=== PATIENT | female | born 1985 | race Caucasian/White ===

== ENCOUNTER 2020-09-16 18:50 | Emergency (ER) | payer OTHER ==
[~2020-09-16 18:50] MED LIST: CYCLOBENZAPRINE10 MG PO; TORADOL 10 MG T10 MG PO
[2020-09-16] MEDS ORDERED: BACTRIM DS TAB1 EACH PO (20:02)
== END 2020-09-16 20:20 | disposition home or self-care (01) ==
LOC: ER1 18:50
DX: L02.416 Cutaneous abscess of left lower limb (principal); F17.200 Nicotine dependence, unspecified, uncomplicated; Z90.49 Acquired absence of other specified parts of digestive tract; Z88.0 Allergy status to penicillin; Z88.5 Allergy status to narcotic agent; Z79.899 Other long term (current) drug therapy
CPT/HCPCS: 10060; 99281

== ENCOUNTER 2020-11-16 16:31 | Emergency (ER) | payer OTHER ==
[~2020-11-16 16:31] MED LIST changes: +BACTRIM DS TAB1 EACH PO
[2020-11-16 18:04] LABS: HEMOGLOBIN 14.3 gm/dl (12.3-15.3); RED BLOOD COUNT 4.47 M/UL (4.00-5.10); WHITE BLOOD COUNT 7.8 K/UL (4.5-11.0)
[2020-11-16 18:34] LABS: BUN/CREATININE RATIO 10 (0-10)
[2020-11-16] MEDS ORDERED: CIPRO500 MG PO (19:48)
== END 2020-11-16 19:58 | disposition home or self-care (01) ==
LOC: ER1 16:31
PROVIDERS: Nurse Practitioner
DX: N39.0 Urinary tract infection, site not specified (principal); R31.9 Hematuria, unspecified; Z90.710 Acquired absence of both cervix and uterus; Z88.0 Allergy status to penicillin; Z88.1 Allergy status to other antibiotic agents; Z88.5 Allergy status to narcotic agent; Z79.899 Other long term (current) drug therapy; F17.210 Nicotine dependence, cigarettes, uncomplicated
CPT/HCPCS: 80053; 81001; 83605; 84703; 85025; 87077; 87086; 87186; 99284